=== PATIENT | male | born 1970 | race Caucasian/White ===

== ENCOUNTER 2018-08-02 19:29 | Emergency (ER) | payer OTHER ==
[2018-08-02] MEDS ORDERED: KETOROLAC TROMETHAMINE 60 MG/2 ML SDV IM ONE (20:25)
--- NOTE | 2018-08-02 20:29 | ER Document Report ---
ED Medical Screen (RME) - General Chief Complaint: Fall Injury Stated Complaint: FALL/BACK AND NECK PAIN Time Seen by Provider: 08/02/18 20:25 Mode of Arrival: Ambulatory Information source: Patient Notes: This is a 47-year-old man with a history of back injuries and chronic back pain. Patient presents with mid back and low back pain after falling down off a ladder. Patient was climbing up the first story when he lost his balance and slid to the ground. He states he did not land with all his weight on his feet but quickly fell and landed on his buttocks. He complains of right paraspinal pain in the thoracic and lumbar area. He states he has no pain whatsoever in his feet. He denies any pain in the pelvis. States he feels tight. He denies any numbness to the saddle area. No difficulty urinating. This happened a few hours before arrival. He has no tenderness over the cervical spine and his range of motion at the neck. He has no tenderness over the thoracic or lumbar vertebrae. He does have tenderness to the right paraspinal area over the thoracic and lumbar area. He is ambulatory in triage. TRAVEL OUTSIDE OF THE [place] IN LAST 30 DAYS: No - Related Data Allergies/Adverse Reactions: No Known Allergies Allergy (Unverified 03/30/15 09:33) Past Medical History - Social History Chew tobacco use (# tins/day): No Frequency of alcohol use: Rare Drug Abuse: None - Past Medical History Cardiac Medical History: Reports: Hx Hypertension Denies: Hx Coronary Artery Disease, Hx Heart Attack Pulmonary Medical History: Reports: Hx Asthma - sports induced Denies: Hx Bronchitis, Hx COPD, Hx Pneumonia Neurological Medical History: Denies: Hx Cerebrovascular Accident, Hx Seizures Endocrine Medical History: Reports: Hx Diabetes Mellitus Type 2 Renal/ Medical History: Denies: Hx Peritoneal Dialysis Musculoskeltal Medical History: Denies Hx Arthritis Past Surgical History: Reports: Hx Cholecystectomy - Immunizations Immunizations up to date: Yes Hx Diphtheria, Pertussis, Tetanus Vaccination: Yes Physical Exam - Vital signs Vitals: Temp Pulse Resp BP Pulse Ox 98.6 F 70 16 152/88 H 98 08/02/18 19:46 08/02/18 19:46 08/02/18 19:46 08/02/18 19:46 08/02/18 19:46 Course - Vital Signs Vital signs: Temp Pulse Resp BP Pulse Ox 98.6 F 70 16 152/88 H 98 08/02/18 19:46 08/02/18 19:46 08/02/18 19:46 08/02/18 19:46 08/02/18 19:46 Doctor's Discharge - Discharge Referrals: ALISSON ZIEGLER COOKER [facility] [Primary Care Provider] - Follow up as needed
--- NOTE | 2018-08-02 21:06 | RADIOLOGY REPORT (SQ) ---
EXAM DESCRIPTION: XR LUMBAR SPINE ANTEROPOSTERIOR, LATERAL, AND OBLIQUES COMPLETED DATE/TME: 08/02/2018 20:26 CLINICAL HISTORY: 47 years, Male, low back pain Findings: Vertebral body heights are intact. Alignment is intact. No subluxation. Pedicles are intact. No significant advanced degenerative changes. IMPRESSION: No fracture.
--- NOTE | 2018-08-02 21:06 | RADIOLOGY REPORT (SQ) ---
EXAM DESCRIPTION: XR THORACIC SPINE 2 VIEWS COMPLETED DATE/TME: 08/02/2018 20:25 CLINICAL HISTORY: 47 years, Male, back pain s/p fall Findings: Vertebral body heights are intact. Alignment is intact. No subluxation. Pedicles are intact. IMPRESSION: No fracture.
--- NOTE | 2018-08-02 22:28 | ER Document Report ---
ED Fall - General Chief Complaint: Fall Injury Stated Complaint: FALL/BACK AND NECK PAIN Time Seen by Provider: 08/02/18 20:25 Mode of Arrival: Ambulatory Information source: Patient Notes: Patient is a 47-year-old male who comes the emergency department for chief complaint of fall. He states he fell off the middle of a ladder that was penitentiary up a one-story building, he states that he tumbled down the ladder and then felt like he jerked his back hard. He denies landing on the ground, he caught himself with his leg awkwardly. He denies hip pain, leg pain. Pain is in the mid to lower back. Denies head injury, abdominal pain, chest pain, numbness, incontinence, inability to urinate. He is not on a blood thinner. TRAVEL OUTSIDE OF THE [place] IN LAST 30 DAYS: No - Related data Allergies/Adverse Reactions: No Known Allergies Allergy (Unverified 03/30/15 09:33) Past Medical History - General Information source: Patient - Social History Smoking Status: Never Smoker Chew tobacco use (# tins/day): No Frequency of alcohol use: Rare Drug Abuse: None Family History: Reviewed & Not Pertinent Patient has suicidal ideation: No Patient has homicidal ideation: No - Past Medical History Cardiac Medical History: Reports: Hx Hypertension Denies: Hx Coronary Artery Disease, Hx Heart Attack Pulmonary Medical History: Reports: Hx Asthma - sports induced Denies: Hx Bronchitis, Hx COPD, Hx Pneumonia Neurological Medical History: Denies: Hx Cerebrovascular Accident, Hx Seizures Endocrine Medical History: Reports: Hx Diabetes Mellitus Type 2 Renal/ Medical History: Denies: Hx Peritoneal Dialysis Musculoskeletal Medical History: Denies Hx Arthritis Past Surgical History: Reports: Hx Cholecystectomy - Immunizations Immunizations up to date: Yes Hx Diphtheria, Pertussis, Tetanus Vaccination: Yes Review of Systems - Review of Systems Constitutional: No symptoms reported EENT: No symptoms reported Cardiovascular: No symptoms reported Respiratory: No symptoms reported Gastrointestinal: No symptoms reported Genitourinary: No symptoms reported Male Genitourinary: No symptoms reported Musculoskeletal: See HPI Skin: No symptoms reported Hematologic/Lymphatic: No symptoms reported Neurological/Psychological: No symptoms reported Physical Exam - Vital signs Vitals: Temp Pulse Resp BP Pulse Ox 98.6 F 70 16 152/88 H 98 08/02/18 19:46 08/02/18 19:46 08/02/18 19:46 08/02/18 19:46 08/02/18 19:46 - Notes Notes: GENERAL: Alert, interacts well. No acute distress. HEAD: Normocephalic, atraumatic. EYES: Pupils equal, round, and reactive to light. Extraocular movements intact. ENT: Oral mucosa moist, tongue midline. Oropharynx unremarkable. Airway patent. Nares patent, no nasal septal hematoma, TM's intact. NECK: Full range of motion. Supple. Trachea midline. LUNGS: Clear to auscultation bilaterally, no wheezes, rales, or rhonchi. No respiratory distress. HEART: Regular rate and rhythm. No murmur ABDOMEN: Soft, non-tender. Non-distended. Bowel sounds present in all 4 quadrants. GENITOURINARY: Deferred EXTREMITIES: Moves all 4 extremities spontaneously. No edema, normal radial and dorsalis pedis pulses bilaterally. No cyanosis. BACK: Tenderness over the bilateral parathoracic and paralumbar musculature. Patient ambulates stiffly. No midline tenderness, no saddle anesthesia, no signs of trauma. Normal upper and lower extremity range of motion, normal strength, normal distal neurovascular exam. NEUROLOGICAL: Alert and oriented x3. Normal speech. [cranial nerves II through XII grossly intact]. PSYCH: Normal affect, normal mood. SKIN: Warm, dry, normal turgor. No rashes or lesions noted. Course - Re-evaluation Re-evalutation: Patient with developing soreness over the paraspinal muscles, no midline tenderness, x-rays unremarkable, no neurological deficits reported or noted. Discussed results, expectations, treatment, follow-up, return precautions in detail. Patient states understanding and agreement. - Vital Signs Vital signs: Temp Pulse Resp BP Pulse Ox 98.6 F 70 16 141/91 H 97 08/02/18 19:46 08/02/18 22:40 08/02/18 22:40 08/02/18 22:40 08/02/18 22:40 Discharge - Discharge Clinical Impression: Fall from ladder Qualifiers: Encounter type: initial encounter Qualified Code(s): W11.XXXA - Fall on and from ladder, initial encounter Back pain Qualifiers: Back pain location: low back pain Chronicity: acute Back pain laterality: bilateral Sciatica presence: without sciatica Qualified Code(s): M54.5 - Low back pain Condition: Stable Disposition: HOME, SELF-CARE Additional Instructions: The x-rays and evaluation are reassuring. No fractures or dislocations are seen. He will be very sore, progressively for about 2 days, apply heat to your back/neck, rest, avoid lifting/twisting, take medication as prescribed, inflammatory as well. Follow-up with primary care. Return if you worsen including developing numbness, inability to urinate, loss of bowel control, or any other concerning symptoms. Prescriptions: Diazepam [Valium 5 mg Tablet] 1 - 2 tab PO TID PRN #12 tablet PRN Reason: Referrals: ALISSON ZIEGLER, [facility] [Primary Care Provider] - Follow up as needed
[2018-08-03 01:13] VITALS: BP 141/91
== END 2018-08-02 22:40 | disposition home or self-care (01) ==
LOC: ER 19:29
DX: M54.5 Low back pain (principal); M54.2 Cervicalgia; I10 Essential (primary) hypertension; E11.9 Type 2 diabetes mellitus without complications; J45.909 Unspecified asthma, uncomplicated; W11.XXXA Fall on and from ladder, initial encounter; Y92.9 Unspecified place or not applicable
CPT/HCPCS: 99283; 96372; 72110; 72070; J1885